=== PATIENT | female | born 1990 | race African-American/Black ===

== ENCOUNTER 2019-05-23 17:04 | Emergency (ER) | payer OTHER ==
[~2019-05-23] VITALS: Ht 165.1 cm; Wt 109.0 kg
[~2019-05-23 17:04] MED LIST: BACTRIM DS1 TAB PO; DOXYCYCL HYC100 M4 PO; FERR SULFATE325 MG PO; IBUPROFEN600 MG PO; LORTAB 7.57.5 MG PO; NO HOME MEDS; PRE-NATAL PO; ULTRAM50 M1 PO
[2019-05-23 17:58] LABS: HEMOGLOBIN 10.7 g/dl (12.0-16.0); IMMATURE GRANULOCYTES 0.3 % (0.0-5.0); MEAN CELL VOLUME 73.1 fL CALC (80.0-100.0); MEAN CORPUSCULAR HGB 22.3 pG CALC (26.0-32.0); MEAN CORPUSCULAR HGB CONC 30.6 g/L CALC (32.0-36.0); NEUT# 5.24 thou/uL (2.00-7.15); RED BLOOD COUNT 4.79 mill/uL (4.20-5.60); RED CELL DISTRI WIDTH 16.8 % (11.5-15.5)
[2019-05-23 18:17] LABS: ANION GAP 17 (6-22 (CALC)); BUN 11 mg/dL (7-17); BUN/CREATININE RATIO 19 (12-20 (CALC)); CARBON DIOXIDE 19 mmol/l (22-30); CHLORIDE 104 mmol/l (95-108); CREATININE 0.6 mg/dL (0.5-1.0); GFR > 60 ML/MIN (>=60 (CALC)); GFR FOR AFR.AMER. > 60 ML/MIN (>=60 (CALC)); SODIUM 137 mmol/l (137-146)
[2019-05-23] MEDS ORDERED: EPIPEN 2-P0.3 MG/0.3 IM (19:18)
[2019-05-23] MEDS ORDERED: PREDNISONE50 MG PO (19:18)
[2019-05-23 19:28] VITALS: BP 142/68
== END 2019-05-23 19:49 | disposition home or self-care (01) | DRG 918 ==
LOC: ED 17:04
PROVIDERS: Family Medicine
DX: T63.461A Toxic effect of venom of wasps, accidental (unintentional), initial encounter (principal); R20.0 Anesthesia of skin

== ENCOUNTER 2022-08-01 19:23 | Emergency (ER) | payer OTHER ==
[~2022-08-01] VITALS: Ht 165.1 cm; Wt 115.0 kg
[~2022-08-01 19:23] MED LIST changes: +EPIPEN 2-P0.3 MG/0.3 IM; +PREDNISONE50 MG PO
[2022-08-01 20:57] VITALS: BP 144/83
[2022-08-01 21:01] VITALS: BP 130/68
[2022-08-01 21:16] VITALS: BP 120/96
[2022-08-01 21:31] VITALS: BP 139/77
[2022-08-01 21:46] VITALS: BP 121/78
[2022-08-02 01:44] VITALS: BP 128/71
[2022-08-02] MEDS ORDERED: NAPROXEN500 MG PO (01:45)
[2022-08-02 01:52] VITALS: BP 128/71
== END 2022-08-02 02:06 | disposition home or self-care (01) | DRG 556 ==
LOC: ED 19:23
DX: M79.601 Pain in right arm (principal)